=== PATIENT | female | born 1990 | race Two or more races ===

== ENCOUNTER 2020-04-26 11:45 | Inpatient (IN) | payer OTHER ==
[~2020-04-26] VITALS: Ht 157.5 cm; Wt 3.2 kg
[2020-05-03] MEDS ORDERED: PRENATAL VITAM1 EAC5 PO (09:28)
== END 2020-05-05 16:33 | disposition home or self-care (01) | DRG 788 ==
LOC: OB/GYN 05-03 08:15 → O/R 05-03 08:57 → OB/GYN 05-03 08:57
PROVIDERS: Obstetrics & Gynecology; ADMIT Obstetrics & Gynecology Maternal & Fetal Medicine; ATTEND Obstetrics & Gynecology Maternal & Fetal Medicine
PROC: 4A1HXFZ Monitoring of Products of Conception, Cardiac Rhythm, External Approach (ICD-10-PCS; 2020-05-03)
PROC: 10D00Z1 Extraction of Products of Conception, Low, Open Approach (ICD-10-PCS; principal; 2020-05-03 08:15)
DX: O34.211 Maternal care for low transverse scar from previous cesarean delivery (principal); Z3A.39 39 weeks gestation of pregnancy; Z37.0 Single live birth; Z20.822 Contact with and (suspected) exposure to COVID-19